=== PATIENT | female | born 1960 | race American Indian/Alaskan Native ===

== ENCOUNTER 2016-08-01 20:43 | Emergency (ER) | payer MEDICAID, OTHER ==
[2016-08-01] MEDS ORDERED: Acetaminophen 500 MG Tab PO ONE (21:53)
[2016-08-01] MEDS ORDERED: Iopamidol 612 MG/ML 100 ML Bottle IVPUSH ONE (22:36)
[2016-08-01 22:37] LABS: CHLORIDE,CL 105 mmol/L (101-111); SODIUM,NA 134 mmol/L (135-145)
[2016-08-01 22:39] VITALS: BP 145/75
--- NOTE | 2016-08-01 22:43 | EDM.PDOC ---
ED HPI GENERAL MEDICAL PROBLEM - General Chief Complaint: Fever Stated Complaint: HI FEVER [id number] Time Seen by Provider: 08/01/16 22:25 Source of Information: Reports: Patient History Limitations: Reports: No limitations - History of Present Illness INITIAL COMMENTS - FREE TEXT/NARRATIVE: This 55 yo female patient reports to the ED with a fever and left sided pain. The patient reports she has been having a cough for the past 2 days. The patient also reports she fell while in [facility] on 07/30/16. Since the fall, the patient has been having pain in her left elbow, left shoulder, left side of her chest, left hip and left knee. The patient reports she has been sitting in the EZ chair since the fall. The patient has not attempted to be seen by her primary care provider. The patient reports she is a smoker and has continued to smoke. The patient reports she has been taking ibuprofen for temporary symptom relief. Onset: other Onset Date: 07/30/16 Duration: Day(s):, Constant, Getting worse Location: Reports: chest, pelvis, upper extremity, left, lower extremity, left Quality: Reports: Ache, Sharp Severity: severe Improves with: Reports: Medication, Rest Worsens with: Reports: Movement Associated Symptoms: Reports: cough, fever/chills Treatments EVENTS ASSISTANT: Reports: NSAIDS Other Treatments EVENTS ASSISTANT: states took 600 mg ibuprofen at 6 pm Left Shoulder Pain Score (Numeric/FACES): 9 Left Hip Pain Score (Numeric/FACES): 9 Left Knee Pain Score (Numeric/FACES): 9 Left Elbow Pain Score (Numeric/FACES): 9 Left Chest Pain Score (Numeric/FACES): 9 - Related Data Allergies Allergy/AdvReac Type Severity Reaction Status Date / Time Penicillins Allergy Chills Verified 04/23/16 23:00 Home Meds: Home Meds Gabapentin [Neurontin] 600 mg PO TID 03/16/13 [History] DULoxetine [Cymbalta] 30 mg PO DAILY 03/17/13 [History] Baclofen [Baclofen] 10 mg PO TID 12/08/15 [History] Pantoprazole Sodium [Protonix] 40 mg PO DAILY 12/08/15 [History] Past Medical History HEENT History: Reports: None Respiratory History: Reports: COPD Gastrointestinal History: Reports: GERD Musculoskeletal History: Reports: Fibromyalgia, Osteoarthritis Neurological History: Reports: None Psychiatric History: Reports: None Hematologic History: Reports: None Immunologic History: Reports: None Oncologic (Cancer) History: Reports: None Dermatologic History: Reports: None - Past Surgical History GI Surgical History: Reports: Appendectomy, Cholecystectomy Social & Family History - Family History Family Medical History: Noncontributory - Tobacco Use Smoking Status *Q: Current Every Day Smoker Years of Tobacco use: 37 Packs/Tins Daily: 0.3 Used Tobacco, but Quit: No Second Hand Smoke Exposure: Yes - Caffeine Use Caffeine Use: Reports: Coffee - Alcohol Use Days Per Week of Alcohol Use: 0 - Recreational Drug Use Recreational Drug Use: No - Living Situation & Occupation Living situation: Reports: with family Occupation: unemployed ED ROS GENERAL - Review of Systems Review Of Systems: ROS reveals no pertinent complaints other than HPI. ED EXAM, GENERAL - Physical Exam Exam: See Below Exam Limited By: No limitations General Appearance: alert, WD/WN, moderate distress Eye Exam: bilateral eye: EOMI, normal inspection, PERRL Ears: normal external exam, normal canal, hearing grossly normal, normal TMs Nose: normal inspection, normal mucosa, no blood Throat/Mouth: Normal inspection, Normal lips, Normal teeth, Normal gums, Normal oropharynx, Normal voice, No airway compromise Head: atraumatic, normocephalic Neck: normal inspection, supple, non-tender, full range of motion Respiratory/Chest: no accessory muscle use, decreased breath sounds (left side due to reduced effort) Cardiovascular: normal peripheral pulses, regular rate, rhythm, no edema, no gallop, no JVD, no murmur, no rub GI/Abdominal: normal bowel sounds, soft, tender (diffuse) (Female) Exam: Deferred Rectal (Female) Exam: Deferred Extremities: no pedal edema, normal capillary refill, arm pain (left shoulder and left elbow), leg pain (left hip and left knee) Neurological: alert, oriented, CN II-XII intact, normal cognition, abnormal gait (limping) Psychiatric: depressed mood, flat affect Skin Exam: Dry, Intact, Normal color, No rash, Increased warmth Lymphatic: no adenopathy Course - Vital Signs Last Recorded V/S: Last Vital Signs Temp 38.8 C H 08/01/16 21:57 Pulse 98 08/01/16 21:47 Resp 22 H 08/01/16 21:47 BP 145/75 H 08/01/16 21:47 Pulse Ox 100 08/01/16 21:47 - Orders/Labs/Meds Orders: Active Orders 24 hr Category Date Time Status CULTURE BLOOD [BC] Stat Lab 08/01/16 22:36 Ordered CULTURE BLOOD [BC] Stat Lab 08/01/16 22:36 Ordered cefTRIAXone [Rocephin] 1 gm Med 08/01/16 23:54 Ordered Sodium Chloride 0.9% [Normal Saline] 50 ml IV ONETIME Blood Culture x2 Reflex Set [OM.PC] Stat Oth 08/01/16 22:36 Ordered Medication Orders Ceftriaxone Sodium 1 gm/ (Sodium Chloride) 50 mls @ 100 mls/hr IV ONETIME ONE Stop: 08/02/16 00:23 Labs: Laboratory Tests 08/01/16 08/01/16 08/01/16 Range/Units 22:05 22:05 22:05 WBC 16.0 H (5.0-10.0) 10^3/uL RBC 4.61 (4.2-5.4) 10^6/uL Hgb 13.9 (12.0-16.0) g/dL Hct 41.7 (37.0-47.0) % MCV 90.5 (80-100) fL MCH 30.2 (27.0-34.0) pg MCHC 33.3 (33.0-35.0) g/dL Plt Count 240 (150-450) 10^3/uL Neut % (Auto) 78.9 H (42.2-75.2) % Lymph % (Auto) 13.2 L (20.5-50.1) % Wolfe % (Auto) 7.2 (2-8) % Eos % (Auto) 0.5 L (1.0-3.0) % Baso % (Auto) 0.2 (0.0-1.0) % Sodium 134 L (135-145) mmol/L Potassium 3.7 (3.6-5.0) mmol/L Chloride 105 (101-111) mmol/L Carbon Dioxide 22.0 (21.0-31.0) mmol/L Anion Gap 10.7 BUN 8 (7-18) mg/dL Creatinine 0.7 (0.6-1.3) mg/dL Est Cr Clr Drug Dosing TNP Estimated GFR (MDRD) > 60 BUN/Creatinine Ratio 11.42 Glucose 108 H (74-105) mg/dL Lactic Acid 1.3 (0.5-2.2) mmol/L Calcium 9.1 (8.4-10.2) mg/dl Total Bilirubin 0.4 (0.2-1.0) mg/dL AST 15 (10-42) IU/L ALT 16 (10-60) IU/L Alkaline Phosphatase 99 (42-121) IU/L Total Protein 7.9 (6.7-8.2) g/dl Albumin 3.9 (3.2-5.5) g/dl Globulin 4.0 Albumin/Globulin Ratio 0.98 Meds: Medications Generic Name Dose Route Start Last Admin Trade Name Freq PRN Reason Stop Dose Admin Ceftriaxone Sodium 1 gm/ 50 mls @ 100 mls/hr 08/01/16 23:54 Sodium Chloride IV 08/02/16 00:23 ONETIME ONE Discontinued Medications Generic Name Dose Route Start Last Admin Trade Name Freq PRN Reason Stop Dose Admin Acetaminophen 1,000 mg 08/01/16 21:53 08/01/16 21:57 Tylenol Extra Strength PO 08/01/16 21:54 1,000 mg ONETIME ONE Administration Iopamidol 100 ml 08/01/16 22:36 08/01/16 22:47 Isovue-300 (61%) IVPUSH 08/01/16 22:37 100 ml ONETIME ONE Administration Departure - Departure Time of Disposition: 00:30 Disposition: Home, Self-Care 01 Condition: fair Clinical Impression: Bronchitis Contusion of elbow, left Qualifiers: Encounter type: initial encounter Qualified Code(s): S50.02XA - Contusion of left elbow, initial encounter Contusion of left knee Qualifiers: Encounter type: initial encounter Qualified Code(s): S80.02XA - Contusion of left knee, initial encounter Instructions: Contusion, [id number], Acute Bronchitis, [id number] Forms: ED Department Discharge Care Plan Goals: The patient was advised of the examination, lab, CT and x-ray results during the visit. The patient was given an oral dose of Tylenol and an IV dose of Rocephin while in the ED. The patient was discharged with a script for Azithromycin (250 mg) #6 to take 2 by mouth on day 1 and 1 by mouth on days 2- 5. If the patient has any additional symptoms or concerns, the patient should follow-up with her primary care facility or return to the emergency department. - My Orders Last 24 Hours: My Active Orders 08/01/16 22:36 CULTURE BLOOD [BC] Stat CULTURE BLOOD [BC] Stat Blood Culture x2 Reflex Set [OM.PC] Stat 08/01/16 23:54 cefTRIAXone [Rocephin] 1 gm Sodium Chloride 0.9% [Normal Saline] 50 ml IV ONETIME - Assessment/Plan Last 24 Hours: My Active Orders 08/01/16 22:36 CULTURE BLOOD [BC] Stat CULTURE BLOOD [BC] Stat Blood Culture x2 Reflex Set [OM.PC] Stat 08/01/16 23:54 cefTRIAXone [Rocephin] 1 gm Sodium Chloride 0.9% [Normal Saline] 50 ml IV ONETIME
[2016-08-01] MEDS ORDERED: cefTRIAXone 1 GM in Sodium Chloride 0.9% 50 ML IV ONE (23:54)
[2016-08-02] MEDS ORDERED: cefTRIAXone 1 GM in Sodium Chloride 0.9% 100 ML IV ONE (00:05)
== END 2016-08-02 01:11 | disposition home or self-care (01) ==
LOC: DL.ED 20:43
DX: J40 Bronchitis, not specified as acute or chronic (principal); S50.02XA Contusion of left elbow, initial encounter; S80.02XA Contusion of left knee, initial encounter; F17.210 Nicotine dependence, cigarettes, uncomplicated; K21.9 Gastro-esophageal reflux disease without esophagitis; Z90.49 Acquired absence of other specified parts of digestive tract; Z98.890 Other specified postprocedural states; Z79.899 Other long term (current) drug therapy; Z88.0 Allergy status to penicillin; W19.XXXA Unspecified fall, initial encounter
CPT/HCPCS: 36415; 71260; 73080; 73562; 74177; 80053; 83605; 85025; 87040; 96365; 99285; A9270; J0696; J7050; Q9967

== ENCOUNTER 2016-10-15 17:44 | Emergency (ER) | payer MEDICAID, OTHER ==
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
[2016-10-15 20:45] VITALS: BP 107/64
[2016-10-15] MEDS ORDERED: Acetaminophen/HYDROcodone 325-10 MG Tab PO ONE (21:06)
== END 2016-10-15 21:20 | disposition home or self-care (01) ==
LOC: DL.ED 17:44
DX: S09.90XA Unspecified injury of head, initial encounter (principal); S70.12XA Contusion of left thigh, initial encounter; S30.1XXA Contusion of abdominal wall, initial encounter; Z88.1 Allergy status to other antibiotic agents; J44.9 Chronic obstructive pulmonary disease, unspecified; K21.9 Gastro-esophageal reflux disease without esophagitis; F17.210 Nicotine dependence, cigarettes, uncomplicated; M19.90 Unspecified osteoarthritis, unspecified site; Z90.49 Acquired absence of other specified parts of digestive tract; Z79.899 Other long term (current) drug therapy; W22.8XXA Striking against or struck by other objects, initial encounter; Y04.0XXA Assault by unarmed brawl or fight, initial encounter; Y92.099 Unspecified place in other non-institutional residence as the place of occurrence of the external cause
CPT/HCPCS: 70450; 99284; A9270

== ENCOUNTER 2016-11-22 20:30 | Emergency (ER) | payer MEDICAID, OTHER ==
[2016-11-22] MEDS ORDERED: Acetaminophen/HYDROcodone 325-10 MG Tab PO ONE (20:31)
[2016-11-22 20:36] VITALS: BP 102/72
[2016-11-22 21:08] LABS: CHLORIDE,CL 110 mmol/L (101-111); SODIUM,NA 142 mmol/L (135-145)
--- NOTE | 2016-11-22 21:12 | EDM.PDOC ---
ED HPI GENERAL MEDICAL PROBLEM - General Chief Complaint: Chest Pain Stated Complaint: chest pain [id number] Time Seen by Provider: 11/22/16 21:10 Source of Information: Reports: Patient History Limitations: Reports: No Limitations - History of Present Illness INITIAL COMMENTS - FREE TEXT/NARRATIVE: sudden onset left chest pain while sitting and not doing anything then started going down left arm got worried. hurt to move arm. denies trauma. Left Chest Pain Score (Numeric/FACES): 10 - Related Data Allergies Allergy/AdvReac Type Severity Reaction Status Date / Time Penicillins Allergy Chills Verified 11/22/16 20:36 Home Meds: Home Meds Gabapentin [Neurontin] 600 mg PO TID 03/16/13 [History] Baclofen [Baclofen] 10 mg PO TID 12/08/15 [History] Pantoprazole Sodium [Protonix] 40 mg PO DAILY 12/08/15 [History] Past Medical History HEENT History: Reports: None Respiratory History: Reports: COPD Gastrointestinal History: Reports: GERD Musculoskeletal History: Reports: Fibromyalgia, Osteoarthritis Neurological History: Reports: None Psychiatric History: Reports: None Other Endocrine/Metabolic History: states that her PCP wanted to start her on thyroid medication but she refused Hematologic History: Reports: None Immunologic History: Reports: None Oncologic (Cancer) History: Reports: None Dermatologic History: Reports: None - Past Surgical History GI Surgical History: Reports: Appendectomy, Cholecystectomy Social & Family History - Family History Family Medical History: Noncontributory - Tobacco Use Smoking Status *Q: Current Every Day Smoker Years of Tobacco use: 30 Packs/Tins Daily: 0.3 Used Tobacco, but Quit: No Second Hand Smoke Exposure: Yes - Caffeine Use Caffeine Use: Reports: Coffee - Alcohol Use Days Per Week of Alcohol Use: 0 - Recreational Drug Use Recreational Drug Use: No - Living Situation & Occupation Living situation: Reports: with Family Occupation: Unemployed ED ROS GENERAL - Review of Systems Review Of Systems: ROS reveals no pertinent complaints other than HPI. ED EXAM, GENERAL - Physical Exam Exam: See Below Exam Limited By: No Limitations General Appearance: Alert, WD/WN, Anxious, Mild Distress Ears: Hearing Grossly Normal Throat/Mouth: Normal Voice, No Airway Compromise Head: Atraumatic Neck: Non-Tender, Full Range of Motion Respiratory/Chest: No Respiratory Distress, Other (left anterior chest wall palpabel tenderness) Cardiovascular: Regular Rate, Rhythm GI/Abdominal: Soft, Non-Tender Neurological: Alert, Oriented, Normal Cognition, Normal Gait, No Motor/Sensory Deficits Psychiatric: Flat Affect Skin Exam: Warm, Dry, Normal Color Lymphatic: No Adenopathy Course - Vital Signs Last Recorded V/S: Last Vital Signs Temp 36.4 C 11/22/16 20:32 Pulse 73 11/22/16 20:32 Resp 18 11/22/16 20:32 BP 102/72 11/22/16 20:32 Pulse Ox 96 11/22/16 20:32 - Orders/Labs/Meds Orders: Active Orders 24 hr Category Date Time Status EKG 12 Lead [EKG Documentation Completion] [RC] STAT Care 11/22/16 20:37 Active Labs: Laboratory Tests 11/22/16 11/22/16 11/22/16 Range/Units 20:43 20:43 20:43 WBC 6.1 (5.0-10.0) 10^3/uL RBC 4.49 (4.2-5.4) 10^6/uL Hgb 13.6 (12.0-16.0) g/dL Hct 40.4 (37.0-47.0) % MCV 90.0 (80-100) fL MCH 30.3 (27.0-34.0) pg MCHC 33.7 (33.0-35.0) g/dL Plt Count 244 (150-450) 10^3/uL Neut % (Auto) 44.7 (42.2-75.2) % Lymph % (Auto) 43.7 (20.5-50.1) % Lander % (Auto) 10.3 H (2-8) % Eos % (Auto) 1.1 (1.0-3.0) % Baso % (Auto) 0.2 (0.0-1.0) % D-Dimer, Quantitative 178 (0-400) ng/mL Sodium 142 (135-145) mmol/L Potassium 3.7 (3.6-5.0) mmol/L Chloride 110 (101-111) mmol/L Carbon Dioxide 23.0 (21.0-31.0) mmol/L Anion Gap 12.7 BUN 10 (7-18) mg/dL Creatinine 0.7 (0.6-1.3) mg/dL Est Cr Clr Drug Dosing 96.02 mL/min Estimated GFR (MDRD) > 60 BUN/Creatinine Ratio 14.28 Glucose 85 (74-105) mg/dL Calcium 9.3 (8.4-10.2) mg/dl Total Bilirubin 0.3 (0.2-1.0) mg/dL AST 13 (10-42) IU/L ALT 14 (10-60) IU/L Alkaline Phosphatase 100 (42-121) IU/L Troponin I < 0.02 (0.00-0.02) ng/ml Total Protein 7.8 (6.7-8.2) g/dl Albumin 3.8 (3.2-5.5) g/dl Globulin 4.0 Albumin/Globulin Ratio 0.95 - Re-Assessments/Exams Free Text/Narrative Re-Assessment/Exam: 11/22/16 21:13 re-exam; sleeping arousable no c/o presently 11/22/16 21:23 re-exam; results discussed with pt who states her surgeon told her to stop mscl relaxants which she was taking for her left shoulder problem. Departure - Departure Time of Disposition: 21:28 Disposition: Home, Self-Care 01 Condition: Good Clinical Impression: Left-sided chest wall pain Instructions: Nonspecific Chest Pain, [id number] Forms: ED Department Discharge Additional Instructions: 1) avoid use left arm 2) try heat to sore area 3) follow up at clinic or recheck as needed rx given; vicodon 5/325mg bid prn x 12 - My Orders Last 24 Hours: My Active Orders 11/22/16 20:37 EKG 12 Lead [EKG Documentation Completion] [RC] STAT - Assessment/Plan Last 24 Hours: My Active Orders 11/22/16 20:37 EKG 12 Lead [EKG Documentation Completion] [RC] STAT
[2016-11-22] MEDS ORDERED: Ketorolac 30 MG/ML SDV IVPUSH ONE (21:25)
[2016-11-22] MEDS ORDERED: Acetaminophen/HYDROcodone 325-10 MG Tab ONE (21:31)
--- NOTE | 2016-11-26 07:06 | EKG ---
11/22/2016- BRIAN SHER - EKG per my reading shows sinus rhythm at a rate of [address]. [facility] /[id number]
== END 2016-11-22 21:40 | disposition home or self-care (01) ==
LOC: DL.ED 20:30
DX: R07.89 Other chest pain (principal); J44.9 Chronic obstructive pulmonary disease, unspecified; K21.9 Gastro-esophageal reflux disease without esophagitis; M19.90 Unspecified osteoarthritis, unspecified site; F17.210 Nicotine dependence, cigarettes, uncomplicated; Z88.0 Allergy status to penicillin; Z79.899 Other long term (current) drug therapy; Z90.49 Acquired absence of other specified parts of digestive tract
CPT/HCPCS: 36415; 71010; 80053; 84484; 85025; 85379; 93005; 96374; 99285; A9270; J1885

== ENCOUNTER 2017-04-14 23:17 | Emergency (ER) | payer MEDICAID, OTHER ==
[2017-04-15] MEDS ORDERED: Sodium Chloride 0.9% 10 ML Syringe FLUSH PRN (00:07)
--- NOTE | 2017-04-15 00:11 | EDM.PDOC ---
ED HPI GENERAL MEDICAL PROBLEM - General Chief Complaint: Respiratory Problem Stated Complaint: CHEST AND BACK PAIN [id number] Time Seen by Provider: 04/14/17 23:58 Source of Information: Reports: Patient History Limitations: Reports: No Limitations - History of Present Illness INITIAL COMMENTS - FREE TEXT/NARRATIVE: Pt comes to the ED with complaints of a headache that started at 2100 hrs tonight. First time headache like this. NO aura. NO recent trauma falls or history of migraine. Headache started rather suddenly and the worst headache of her life. Aching generalized with chest pain substernal with radiation to the bilateral axilla. CP Started at 2200 hrs tonight. Has had before and was told it was gas. No diaphoresis vomiting. Nausea is present. Sob intermittently and is currently a smoking. Denies any anxiety. No pain or swelling to her lower extremities. No change in her vision. no numbness or tingling. No change in the functionality of her upper or lower extremities. Does complain of fever and chills. NO phonophobia or photophobia. Pain also radiates down her neck as well. NO abd pain. Headache Pain Score (Numeric/FACES): 10 - Related Data Allergies Allergy/AdvReac Type Severity Reaction Status Date / Time Penicillins Allergy Chills Verified 04/14/17 23:28 Home Meds: Home Meds Gabapentin [Neurontin] 600 mg PO TID 03/16/13 [History] Baclofen [Baclofen] 10 mg PO TID 12/08/15 [History] Pantoprazole Sodium [Protonix] 40 mg PO DAILY 12/08/15 [History] Past Medical History HEENT History: Reports: None Respiratory History: Reports: COPD Gastrointestinal History: Reports: GERD Musculoskeletal History: Reports: Fibromyalgia, Osteoarthritis Neurological History: Reports: None Psychiatric History: Reports: None Other Endocrine/Metabolic History: states that her PCP wanted to start her on thyroid medication but she refused Hematologic History: Reports: None Immunologic History: Reports: None Oncologic (Cancer) History: Reports: None Dermatologic History: Reports: None - Past Surgical History GI Surgical History: Reports: Appendectomy, Cholecystectomy Social & Family History - Family History Family Medical History: Noncontributory - Tobacco Use Smoking Status *Q: Current Every Day Smoker Years of Tobacco use: 40 Packs/Tins Daily: 0.5 Used Tobacco, but Quit: No Second Hand Smoke Exposure: Yes - Caffeine Use Caffeine Use: Reports: Coffee - Alcohol Use Days Per Week of Alcohol Use: 0 - Recreational Drug Use Recreational Drug Use: No - Living Situation & Occupation Living situation: Reports: with Family Occupation: Unemployed ED ROS GENERAL - Review of Systems Review Of Systems: ROS reveals no pertinent complaints other than HPI. ED EXAM, GENERAL - Physical Exam Exam: See Below Exam Limited By: No Limitations General Appearance: Alert, WD/WN, No Apparent Distress Eye Exam: Bilateral Eye: EOMI, Normal Inspection, PERRL Ears: Normal External Exam, Normal Canal, Normal TMs Nose: Normal Inspection, Normal Mucosa, No Blood Throat/Mouth: Normal Inspection, Normal Lips, Normal Teeth, Normal Oropharynx, Normal Voice Head: Atraumatic, Normocephalic Neck: Normal Inspection, Supple, Non-Tender, Full Range of Motion Respiratory/Chest: No Respiratory Distress, Lungs Clear, Normal Breath Sounds, No Accessory Muscle Use, Chest Non-Tender Cardiovascular: Normal Peripheral Pulses, Regular Rate, Rhythm, No Edema, No JVD Peripheral Pulses: 2+: Radial (L), Radial (R), Posterior Tibial (L), Posterior Tibial (R), Dorsalis Pedis (L), Dorsalis Pedis (R) GI/Abdominal: Normal Bowel Sounds, Soft, No Distention (Female) Exam: Deferred Rectal (Female) Exam: Deferred Back Exam: Normal Inspection, Full Range of Motion. No: CVA Tenderness (L), CVA Tenderness (R) Extremities: Normal Inspection, Normal Range of Motion, Non-Tender, Normal Capillary Refill Neurological: Alert, Oriented, CN II-XII Intact, Normal Cognition, Normal Reflexes, No Motor/Sensory Deficits Psychiatric: Normal Affect, Normal Mood Skin Exam: Warm, Dry, Intact, Normal Color, No Rash Lymphatic: No Adenopathy EKG INTERPRETATION EKG Date: 04/15/17 Time: 00:28 Rhythm: Other (first-degree AV block) Rate (Beats/Min): 81 [place]: Normal P-Wave: Present (first-degree AV block) QRS: Normal ST-T: Normal QT: Normal Comparison: NA - No Prior EKG Course - Vital Signs Last Recorded V/S: Last Vital Signs Temp 37.3 C 04/15/17 02:08 Pulse 94 04/15/17 02:08 Resp 14 04/15/17 02:08 BP 99/61 04/15/17 02:08 Pulse Ox 94 L 04/15/17 02:08 - Orders/Labs/Meds Orders: Active Orders 24 hr Category Date Time Status EKG 12 Lead [EKG Documentation Completion] [RC] URGENT Care 04/15/17 00:08 Active Peripheral IV Care [RC] . DIRECTED Care 04/15/17 00:08 Active Chest 2V [CR] Urgent Exams 04/15/17 00:08 Taken Head wo Cont [CT] Stat Exams 04/15/17 00:07 Taken Peripheral IV Insertion Adult [OM.PC] Stat Oth 04/15/17 00:07 Ordered Labs: Laboratory Tests 04/15/17 04/15/17 04/15/17 Range/Units 00:26 00:26 00:26 WBC 8.8 (5.0-10.0) 10^3/uL RBC 4.54 (4.2-5.4) 10^6/uL Hgb 13.6 (12.0-16.0) g/dL Hct 40.7 (37.0-47.0) % MCV 89.6 (80-100) fL MCH 30.0 (27.0-34.0) pg MCHC 33.4 (33.0-35.0) g/dL Plt Count 260 (150-450) 10^3/uL Neut % (Auto) 76.1 H (42.2-75.2) % Lymph % (Auto) 15.3 L (20.5-50.1) % [place] % (Auto) 6.8 (2-8) % Eos % (Auto) 1.7 (1.0-3.0) % Baso % (Auto) 0.1 (0.0-1.0) % Sodium 139 (135-145) mmol/L Potassium 3.6 (3.6-5.0) mmol/L Chloride 108 (101-111) mmol/L Carbon Dioxide 22.0 (21.0-31.0) mmol/L Anion Gap 12.6 BUN 12 (7-18) mg/dL Creatinine 0.8 (0.6-1.3) mg/dL Est Cr Clr Drug Dosing 71.50 mL/min Estimated GFR (MDRD) > 60 BUN/Creatinine Ratio 15.00 Glucose 102 (74-105) mg/dL Calcium 9.0 (8.4-10.2) mg/dl Total Bilirubin 0.5 (0.2-1.0) mg/dL AST 18 (10-42) IU/L ALT 17 (10-60) IU/L Alkaline Phosphatase 102 (42-121) IU/L Troponin I < 0.02 (0.00-0.02) ng/ml C-Reactive Protein < 0.5 (0.0-1.3) mg/dL Total Protein 7.6 (6.7-8.2) g/dl Albumin 3.9 (3.2-5.5) g/dl Globulin 3.7 Albumin/Globulin Ratio 1.05 Meds: Medications Discontinued Medications Generic Name Dose Route Start Last Admin Trade Name Freq PRN Reason Stop Dose Admin Al Hydroxide/Mg Hydroxide 30 ml 04/15/17 00:23 04/15/17 01:12 Gi Cocktail PO 04/15/17 00:24 30 ml ONETIME ONE Administration Diphenhydramine HCl 25 mg 04/15/17 00:21 04/15/17 01:12 Benadryl IVPUSH 04/15/17 00:22 25 mg ONETIME ONE Administration Sodium Chloride 1,000 mls @ 999 mls/hr 04/15/17 00:21 04/15/17 01:11 Normal Saline IV 04/15/17 01:21 999 mls/hr .BOLUS ONE Administration Ketorolac Tromethamine 30 mg 04/15/17 01:57 04/15/17 02:06 Toradol IVPUSH 04/15/17 01:58 30 mg ONETIME ONE Administration Metoclopramide HCl 10 mg 04/15/17 00:21 04/15/17 01:12 Reglan IVPUSH 04/15/17 00:22 10 mg ONETIME ONE Administration Sodium Chloride 10 ml 04/15/17 00:07 Saline Flush FLUSH ASDIRECTED PRN Keep Vein Open - Radiology Interpretation Free Text/Narrative:: CT of the head per radiology no acute intracranial process. Chest x-ray per radiology no active disease of the chest. No significant change. - Re-Assessments/Exams Free Text/Narrative Re-Assessment/Exam: 04/15/17 00:57 patient was initially given Benadryl and Reglan and normal saline for her headache as well as her nausea. I did hold the ketorolac due to concerns of her severe headache until her CAT scan results have been identified. She also received a GI cocktail. 04/15/17 02:04 PT resting comfortably on the cot. Denies chest pain denies headache and feels much better. GI Cocktail resolved her chest pain. Results unremarkable labs and ct head. Departure - Departure Time of Disposition: 02:00 Disposition: Home, Self-Care 01 Clinical Impression: Heartburn Migraine Qualifiers: Migraine type: unspecified Status migrainosus presence: without status migrainosus Intractability: not intractable Qualified Code(s): G43.909 - Migraine, unspecified, not intractable, without status migrainosus - Discharge Information Instructions: Migraine Headache, [id number], Gastroesophageal Reflux Disease , Adult Forms: ED Department Discharge Additional Instructions: Tums Rolaids Maalox or Mylanta [id number] for acute symptoms of heartburn. Continue your omeprazole daily Tylenol or ibuprofen as needed for headache. Push fluids over the next couple of days. Try to rest as much as possible. Return to emergency department if new or worsening symptoms. Follow-up primary care provider in the next 4-6 days not improving sooner first. - My Orders Last 24 Hours: My Active Orders 04/15/17 00:07 Head wo Cont [CT] Stat Peripheral IV Insertion Adult [OM.PC] Stat 04/15/17 00:08 EKG 12 Lead [EKG Documentation Completion] [RC] URGENT Peripheral IV Care [RC] . DIRECTED Chest 2V [CR] Urgent - Assessment/Plan Last 24 Hours: My Active Orders 04/15/17 00:07 Head wo Cont [CT] Stat Peripheral IV Insertion Adult [OM.PC] Stat 04/15/17 00:08 EKG 12 Lead [EKG Documentation Completion] [RC] URGENT Peripheral IV Care [RC] . DIRECTED Chest 2V [CR] Urgent
[2017-04-15] MEDS ORDERED: Metoclopramide 10 MG/2 ML SDV IVPUSH ONE (00:21)
[2017-04-15] MEDS ORDERED: diphenhydrAMINE 50 MG/ML SDV IVPUSH ONE (00:21)
[2017-04-15] MEDS ORDERED: Sodium Chloride 0.9% 1,000 ML IV ONE (00:21)
[2017-04-15] MEDS ORDERED: GI Cocktail Oral Solution 30 ML PO ONE (00:23)
[2017-04-15 01:06] LABS: CHLORIDE,CL 108 mmol/L (101-111); SODIUM,NA 139 mmol/L (135-145)
[2017-04-15] MEDS ORDERED: Ketorolac 30 MG/ML SDV IVPUSH ONE (01:57)
[2017-04-15 02:10] VITALS: BP 99/61
--- NOTE | 2017-04-21 09:32 | EKG ---
04/15/2017- BRIAN SHER - EKG per my reading shows sinus rhythm at a rate of 81. [facility] /[id number]
== END 2017-04-15 02:19 | disposition home or self-care (01) ==
LOC: DL.ED 23:17
DX: G43.909 Migraine, unspecified, not intractable, without status migrainosus (principal); R12 Heartburn; J44.9 Chronic obstructive pulmonary disease, unspecified; K21.9 Gastro-esophageal reflux disease without esophagitis; F17.210 Nicotine dependence, cigarettes, uncomplicated; Z88.0 Allergy status to penicillin; Z79.899 Other long term (current) drug therapy
CPT/HCPCS: 36415; 70450; 71046; 80053; 84484; 85025; 86140; 87804; 93005; 96361; 96374; 96375; 99284; A9270; J1200; J1885; J2765; J7030

== ENCOUNTER 2017-11-06 20:07 | Emergency (ER) | payer MEDICAID, OTHER ==
[2017-11-06 20:42] VITALS: BP 109/71
[2017-11-06 21:35] LABS: ANION GAP 10.5; CHLORIDE,CL 110 mmol/L (101-111); SODIUM,NA 138 mmol/L (135-145)
[2017-11-06] MEDS ORDERED: Iopamidol 612 MG/ML 100 ML Bottle IVPUSH ONE (22:11)
[2017-11-07] MEDS ORDERED: Sodium Chloride 0.9% 1,000 ML IV ONE (00:27)
[2017-11-07] MEDS ORDERED: Ondansetron 4 MG/2 ML SDV IV ONE (00:37)
[2017-11-07] MEDS ORDERED: Morphine 2 MG/ML Syringe IVPUSH ONE (00:37)
--- NOTE | 2017-11-07 00:46 | EDM.PDOC ---
ED HPI GENERAL MEDICAL PROBLEM - General Chief Complaint: Abdominal Pain Stated Complaint: STOMACH PAIN Time Seen by Provider: 11/06/17 20:55 Source of Information: Reports: Patient, RN Notes Reviewed History Limitations: Reports: No Limitations - History of Present Illness INITIAL COMMENTS - FREE TEXT/NARRATIVE: ED with c/o intermittent nausea with emesis x 4 today, 4 watery stools. no blood in emesis or diarrhea, Notes chronic diarrhea, no recent GI workup. Lower abdominal pain crampy, present about one week . Intermittent fever, No urinary c /o. Seen on 11/01 with vaginal itching and discharge, diagnosed with BV and Rx for Metrogel. Abdomen Pain Score (Numeric/FACES): 8 - Related Data Allergies Allergy/AdvReac Type Severity Reaction Status Date / Time Penicillins Allergy Chills Verified 11/06/17 20:42 Home Meds: Home Meds Gabapentin [Neurontin] 600 mg PO TID 03/16/13 [History] Baclofen 10 mg PO TID 12/08/15 [History] Pantoprazole Sodium [Protonix] 40 mg PO DAILY 12/08/15 [History] Past Medical History HEENT History: Reports: None Respiratory History: Reports: COPD Gastrointestinal History: Reports: GERD Musculoskeletal History: Reports: Fibromyalgia, Osteoarthritis Neurological History: Reports: None Psychiatric History: Reports: None Other Endocrine/Metabolic History: states that her PCP wanted to start her on thyroid medication but she refused Hematologic History: Reports: None Immunologic History: Reports: None Oncologic (Cancer) History: Reports: None Dermatologic History: Reports: None - Past Surgical History GI Surgical History: Reports: Appendectomy, Cholecystectomy Social & Family History - Family History Family Medical History: Noncontributory - Tobacco Use Smoking Status *Q: Current Every Day Smoker Years of Tobacco use: 40 Packs/Tins Daily: 0.4 Second Hand Smoke Exposure: Yes - Caffeine Use Caffeine Use: Reports: Coffee, Soda - Recreational Drug Use Recreational Drug Use: No - Living Situation & Occupation Living situation: Reports: with Family Occupation: Unemployed ED ROS GENERAL - Review of Systems Review Of Systems: ROS reveals no pertinent complaints other than HPI. ED EXAM, GI/ABD - Physical Exam Exam: See Below Exam Limited By: No Limitations General Appearance: Alert, Mild Distress Eyes: Bilateral: EOMI Ears: Normal External Exam Nose: Normal Inspection Throat/Mouth: Normal Inspection Head: Atraumatic, Normocephalic Neck: Normal Inspection, Full Range of Motion Respiratory/Chest: No Respiratory Distress, Lungs Clear, Decreased Breath Sounds (bases bilaterally) Cardiovascular: Normal Peripheral Pulses, Regular Rate, Rhythm GI/Abdominal Exam: Soft, Tender (lower abdomen). No: Distended, Guarding, Rebound Back Exam: Normal Inspection Extremities: Normal Inspection Neurological: Alert, Oriented Psychiatric: Flat Affect Skin Exam: Warm, Dry, Intact, Normal Color Course - Vital Signs Last Recorded V/S: Last Vital Signs Temp 97.9 F 11/06/17 20:39 Pulse 85 11/06/17 20:39 Resp 17 11/06/17 20:39 BP 109/71 11/06/17 20:39 Pulse Ox 98 11/06/17 20:39 - Orders/Labs/Meds Labs: Laboratory Tests 11/06/17 11/06/17 11/06/17 Range/Units 21:10 21:10 21:10 WBC 7.4 (5.0-10.0) 10^3/uL RBC 4.49 (4.2-5.4) 10^6/uL Hgb 13.7 (12.0-16.0) g/dL Hct 40.5 (37.0-47.0) % MCV 90.2 (80-100) fL MCH 30.5 (27.0-34.0) pg MCHC 33.8 (33.0-35.0) g/dL Plt Count 246 (150-450) 10^3/uL Neut % (Auto) 52.7 (42.2-75.2) % Lymph % (Auto) 38.3 (20.5-50.1) % [place] % (Auto) 7.3 (2-8) % Eos % (Auto) 1.6 (1.0-3.0) % Baso % (Auto) 0.1 (0.0-1.0) % Sodium (135-145) mmol/L Potassium (3.6-5.0) mmol/L Chloride (101-111) mmol/L Carbon Dioxide (21.0-31.0) mmol/L Anion Gap BUN (7-18) mg/dL Creatinine (0.6-1.3) mg/dL Est Cr Clr Drug Dosing mL/min Estimated GFR (MDRD) BUN/Creatinine Ratio Glucose (74-105) mg/dL Lactic Acid (0.5-2.2) mmol/L Calcium (8.4-10.2) mg/dl Total Bilirubin (0.2-1.0) mg/dL AST (10-42) IU/L ALT (10-60) IU/L Alkaline Phosphatase (42-121) IU/L Total Protein (6.7-8.2) g/dl Albumin (3.2-5.5) g/dl Globulin Albumin/Globulin Ratio Urine Color Yellow (YELLOW) Urine Appearance Slightly cloudy (CLEAR) Urine pH 5.5 (5.0-9.0) Ur Specific [place] <= 1.005 (1.005-1.030) Urine Protein Negative (NEGATIVE) Urine Glucose (UA) Negative (NEGATIVE) Urine Ketones Negative (NEGATIVE) Urine Occult Blood Large H (NEGATIVE) Urine Nitrite Negative (NEGATIVE) Urine Bilirubin Negative (NEGATIVE) Urine Urobilinogen 0.2 (0.2-1.0) mg/dL Ur Leukocyte Esterase Trace H (NEGATIVE) Urine RBC 0-5 /HPF Urine WBC 0-5 (0-5/HPF) /HPF Ur Epithelial Cells Few /HPF Urine Bacteria Few (0-FEW/HPF) /HPF Urine Opiates Screen Negative (NEGATIVE) Ur Oxycodone Screen Negative (NEGATIVE) Urine Methadone Screen Negative (NEGATIVE) Ur Barbiturates Screen Negative (NEGATIVE) U Tricyclic Antidepress Negative (NEGATIVE) Ur Phencyclidine Scrn Negative (NEGATIVE) Ur Amphetamine Screen Negative (NEGATIVE) U Methamphetamines Scrn Negative (NEGATIVE) Urine MDMA Screen Negative (NEGATIVE) U Benzodiazepines Scrn Negative (NEGATIVE) Urine Cocaine Screen Negative (NEGATIVE) U Marijuana (THC) Screen Negative (NEGATIVE) 11/06/17 11/06/17 Range/Units 21:10 21:10 WBC (5.0-10.0) 10^3/uL RBC (4.2-5.4) 10^6/uL Hgb (12.0-16.0) g/dL Hct (37.0-47.0) % MCV (80-100) fL MCH (27.0-34.0) pg MCHC (33.0-35.0) g/dL Plt Count (150-450) 10^3/uL Neut % (Auto) (42.2-75.2) % Lymph % (Auto) (20.5-50.1) % [place] % (Auto) (2-8) % Eos % (Auto) (1.0-3.0) % Baso % (Auto) (0.0-1.0) % Sodium 138 (135-145) mmol/L Potassium 3.5 L (3.6-5.0) mmol/L Chloride 110 (101-111) mmol/L Carbon Dioxide 21.0 (21.0-31.0) mmol/L Anion Gap 10.5 BUN 10 (7-18) mg/dL Creatinine 0.8 (0.6-1.3) mg/dL Est Cr Clr Drug Dosing 68.61 mL/min Estimated GFR (MDRD) > 60 BUN/Creatinine Ratio 12.50 Glucose 95 (74-105) mg/dL Lactic Acid 0.7 (0.5-2.2) mmol/L Calcium 9.3 (8.4-10.2) mg/dl Total Bilirubin 0.4 (0.2-1.0) mg/dL AST 16 (10-42) IU/L ALT 15 (10-60) IU/L Alkaline Phosphatase 94 (42-121) IU/L Total Protein 7.9 (6.7-8.2) g/dl Albumin 3.9 (3.2-5.5) g/dl Globulin 4.0 Albumin/Globulin Ratio 0.98 Urine Color (YELLOW) Urine Appearance (CLEAR) Urine pH (5.0-9.0) Ur Specific [place] (1.005-1.030) Urine Protein (NEGATIVE) Urine Glucose (UA) (NEGATIVE) Urine Ketones (NEGATIVE) Urine Occult Blood (NEGATIVE) Urine Nitrite (NEGATIVE) Urine Bilirubin (NEGATIVE) Urine Urobilinogen (0.2-1.0) mg/dL Ur Leukocyte Esterase (NEGATIVE) Urine RBC /HPF Urine WBC (0-5/HPF) /HPF Ur Epithelial Cells /HPF Urine Bacteria (0-FEW/HPF) /HPF Urine Opiates Screen (NEGATIVE) Ur Oxycodone Screen (NEGATIVE) Urine Methadone Screen (NEGATIVE) Ur Barbiturates Screen (NEGATIVE) U Tricyclic Antidepress (NEGATIVE) Ur Phencyclidine Scrn (NEGATIVE) Ur Amphetamine Screen (NEGATIVE) U Methamphetamines Scrn (NEGATIVE) Urine MDMA Screen (NEGATIVE) U Benzodiazepines Scrn (NEGATIVE) Urine Cocaine Screen (NEGATIVE) U Marijuana (THC) Screen (NEGATIVE) Meds: Medications Discontinued Medications Generic Name Dose Route Start Last Admin Trade Name [place] PRN Reason Stop Dose Admin Sodium Chloride 1,000 mls @ 150 mls/hr 11/07/17 00:27 11/07/17 00:31 Normal Saline IV 11/07/17 07:06 150 mls/hr .BOLUS ONE Administration Iopamidol 100 ml 11/06/17 22:11 11/06/17 22:25 Isovue-300 (61%) IVPUSH 11/06/17 22:12 100 ml ONETIME ONE Administration Morphine Sulfate 2 mg 11/07/17 00:37 11/07/17 00:43 Morphine IVPUSH 11/07/17 00:38 2 mg ONETIME ONE Administration Ondansetron HCl 4 mg 11/07/17 00:37 11/07/17 00:41 Zofran IV 11/07/17 00:38 4 mg ONETIME ONE Administration - Re-Assessments/Exams Free Text/Narrative Re-Assessment/Exam: 11/07/17 00:[address] Stewart, [facility] hospitalist , recommendation for higher care. TC Dr. Marvin Orozco accepting of patient. Tx via [facility] stable condition. Departure - Departure Time of Disposition: 00:50 Disposition: DC/Tfer to Acute Hospital 02 Clinical Impression: Ileus Abdominal pain Qualifiers: Abdominal location: generalized Qualified Code(s): R10.84 - Generalized abdominal pain Hematuria Qualifiers: Hematuria type: asymptomatic microscopic Qualified Code(s): R31.21 - Asymptomatic microscopic hematuria - Discharge Information Referrals: PCP,None [Ordering Only Provider] - Forms: ED Department Discharge
== END 2017-11-07 00:51 ==
LOC: DL.ED 20:07
DX: K56.7 Ileus, unspecified (principal); R31.21 Asymptomatic microscopic hematuria; J44.9 Chronic obstructive pulmonary disease, unspecified; K21.9 Gastro-esophageal reflux disease without esophagitis; F17.210 Nicotine dependence, cigarettes, uncomplicated; Z88.0 Allergy status to penicillin; Z79.899 Other long term (current) drug therapy
CPT/HCPCS: 36415; 74019; 74178; 80053; 80305; 81001; 83605; 85025; 96374; 96375; 99285; J2270; J2405; J7030; Q9967

== ENCOUNTER 2018-07-07 05:15 | Day surgery (SDC) | payer MEDICAID, OTHER ==
[2018-07-07] MEDS ORDERED: Midazolam 1 MG/ML 2 ML SDV IV ONE ×3 (05:16→06:26)
[2018-07-07] MEDS ORDERED: fentaNYL 100 MCG/2 ML SDV IV ONE ×3 (05:16→06:25)
[2018-07-07] MEDS ORDERED: fentaNYL 100 MCG/2 ML SDV ONE (06:00)
[2018-07-07] MEDS ORDERED: Midazolam 1 MG/ML 2 ML SDV ONE (06:00)
[2018-07-07] MEDS ORDERED: Dextrose 5%-0.45% NaCl 1,000 ML IV SCH (06:30)
--- NOTE | 2018-07-07 07:16 | OR ---
DATE: 07/07/2018 PROCEDURE: Esophagogastroduodenoscopy and multiple pinch biopsies. INSTRUMENT USED: [id number]-[id number] Olympus video panendoscope. PREMEDICATIONS: No oral topical anesthesia used. Fentanyl 100 mcg intravenous and Versed 2 mg intravenous. The procedure was done under pulse oximetry, BP recording, and case monitor. INDICATIONS: The patient with chronic abdominal pain and diarrhea unexplained and not responsive to medical measures. DESCRIPTION OF PROCEDURE: Esophagogastroduodenoscopy is performed for detection of any active erosive lesions, malignancy also under consideration, H. pylori status to be determined, small bowel biopsies to be obtained for celiac disease if indicated, endoscopic hemostasis therapy if needed. The scope was passed with ease. Adequate visualization of the esophagus was made from proximal to distal areas. No upper esophageal lesions identified. No distal esophageal stricture. No uphill or downhill esophageal varices. No [place] tear. No evidence of erosive esophagitis by Graves criteria. No esophageal polyp or tumor mass identified. Z-line was seen at around 39 cm distal to the oral verge, configuration consistent with grade 1 by ZAP classification. No proximal gastric varices noted. Gastric fundus examination by retroflexion showed no polypoid lesions. No gastric ulcer, malignant mass, or vascular ectasia identified. Duodenal bulb showed no ulcer. Visualized second part of the duodenum was unremarkable. Multiple pinch biopsies, 4 in number, were taken from different areas of the second part of the duodenum; and tissues were also obtained from the duodenal bulb at 9 o'clock and 12 o'clock positions and sent for any histopathologic evidence of celiac disease. Multiple pinch biopsies were taken from the gastric antrum and proximal body and sent for PyloriTek test for H. pylori and histopathology. No bleeding was noted from any of the visualized areas at the completion of the examination. Photographs were taken of the duodenal bulb, gastric fundus and distal esophagus. IMPRESSION: Normal study. The patient tolerated the procedure well. [facility] /[id number]
[2018-07-07 08:43] VITALS: BP 108/68
== END 2018-07-07 08:40 | disposition home or self-care (01) ==
LOC: DL.ENDO 05:15
PROVIDERS: ATTEND Internal Medicine Gastroenterology
DX: K29.50 Unspecified chronic gastritis without bleeding (principal); K52.9 Noninfective gastroenteritis and colitis, unspecified; K21.9 Gastro-esophageal reflux disease without esophagitis; F17.210 Nicotine dependence, cigarettes, uncomplicated; M19.90 Unspecified osteoarthritis, unspecified site; E66.09 Other obesity due to excess calories; Z68.31 Body mass index [BMI] 31.0-31.9, adult; Z88.0 Allergy status to penicillin
CPT/HCPCS: 43239; 87077; J2250; J3010; J7042

== ENCOUNTER 2021-04-18 18:40 | Emergency (ER) | payer OTHER, MEDICAID ==
[2021-04-18 17:14] LABS: SODIUM,NA 142 mmol/L (136-145)
[2021-04-18 17:23] LABS: ANION GAP 20.3 mEq/L (7-13); CHLORIDE,CL 103 mmol/L (98-107)
[~2021-04-18 18:40] MED LIST: Acetaminophen 500 MG Tab PO ONE; fentaNYL 100 MCG/2 ML SDV IVPUSH ONE
[2021-04-18] MEDS ORDERED: Ondansetron 4 MG Tab.DIS PO ONE (18:41)
[2021-04-18] MEDS ORDERED: Acetaminophen/HYDROcodone 325-5 MG Tab PO ONE (18:41)
[2021-04-18] MEDS ORDERED: Acetaminophen/HYDROcodone 325-5 MG Tab ONE (20:38)
[2021-04-18] MEDS ORDERED: Ondansetron 4 MG/2 ML SDV IVPUSH ONE (20:44)
[2021-04-18] MEDS ORDERED: Ondansetron 4 MG Tab.DIS ONE (20:48)
== END 2021-04-18 21:05 | disposition home or self-care (01) ==
LOC: DL.ED 18:40
DX: S22.43XA Multiple fractures of ribs, bilateral, initial encounter for closed fracture (principal); S01.01XA Laceration without foreign body of scalp, initial encounter; S80.01XA Contusion of right knee, initial encounter; S80.02XA Contusion of left knee, initial encounter; K21.9 Gastro-esophageal reflux disease without esophagitis; E03.9 Hypothyroidism, unspecified; E66.9 Obesity, unspecified; Z88.0 Allergy status to penicillin; Z79.899 Other long term (current) drug therapy; V43.52XA Car driver injured in collision with other type car in traffic accident, initial encounter
CPT/HCPCS: 12001; 36415; 70450; 71250; 72125; 80053; 85025; 96374; 99284; A9270; J2405; J3010

== ENCOUNTER 2021-07-24 21:09 | Inpatient (IN) | payer MEDICAID ==
[2021-07-24] MEDS ORDERED: Acetaminophen 325 MG Tab PO ONE (21:24)
[2021-07-24 22:03] LABS: ANION GAP 14.7 mEq/L (7-13); CHLORIDE,CL 103 mmol/L (98-107); SODIUM,NA 137 mmol/L (136-145)
[2021-07-24] MEDS ORDERED: Iopamidol 612 MG/ML 100 ML Bottle IVPUSH ONE (22:24)
[2021-07-24 22:25] LABS: CORONAVIRUS COVID-19 NAA NEGATIVE (NEGATIVE)
[2021-07-24] MEDS ORDERED: Ondansetron 4 MG/2 ML SDV IVPUSH ONE (23:42)
[2021-07-24] MEDS ORDERED: Sodium Chloride 0.9% 1,000 ML IV ONE (23:43)
[2021-07-24 23:57] LABS: AMPHETAMINES,URINE NEGATIVE (NEGATIVE); BARBITURATES,URINE NEGATIVE (NEGATIVE); BENZODIAZEPINE,URINE NEGATIVE (NEGATIVE); MDMA (ECSTASY), URINE NEGATIVE (NEGATIVE); METHADONE,URINE NEGATIVE (NEGATIVE); METHAMPHETAMINES,URINE NEGATIVE (NEGATIVE); OPIATES,URINE NEGATIVE (NEGATIVE); OXYCODONE,URINE NEGATIVE (NEGATIVE); PHENCYCLIDINE,URINE NEGATIVE (NEGATIVE); TCA,URINE NEGATIVE (NEGATIVE)
[2021-07-25] MEDS ORDERED: HYDROmorphone 0.5 MG/0.5 ML Syringe IVPUSH PRN (01:18)
[2021-07-25] MEDS ORDERED: Polyethylene Glycol 3350 Powder 17 GM Packet PO PRN (01:18)
[2021-07-25] MEDS ORDERED: Zolpidem 5 MG Tab PO PRN (01:18)
[2021-07-25] MEDS ORDERED: Albuterol/Ipratropium 3.0-0.5 MG/3 ML Neb Soln NEB PRN (01:18)
[2021-07-25] MEDS ORDERED: Docusate Sodium 100 MG Cap PO PRN (01:18)
[2021-07-25] MEDS ORDERED: Magnesium Hydroxide 400 MG/5 ML Susp 30 ML Cup PO PRN (01:18)
[2021-07-25] MEDS ORDERED: Acetaminophen 325 MG Tab PO PRN (01:18)
[2021-07-25] MEDS ORDERED: cefTRIAXone 2 GM in Sodium Chloride 0.9% 100 ML IV ONE (01:26)
[2021-07-25] MEDS ORDERED: Metoprolol Tartrate 5 MG/5 ML SDV IVPUSH PRN (01:28)
[2021-07-25] MEDS ORDERED: hydrALAZINE 20 MG/ML SDV IVPUSH PRN (01:29)
[2021-07-25] MEDS ORDERED: Ketorolac 30 MG/ML SDV IVPUSH PRN (01:31)
[2021-07-25] MEDS: Acetaminophen/oxyCODONE 325-5 MG Tab PO PRN ×3 (03:03→15:10)
[2021-07-25] MEDS ORDERED: NABUMETONE 500 MG PO SCH (09:00)
[2021-07-25] MEDS ORDERED: Omeprazole 20 MG Cap.CR PO SCH (09:00)
[2021-07-25] MEDS ORDERED: Nicotine 21 MG/24 Hr Patch TRDERM ONE (09:04)
[2021-07-25] MEDS ORDERED: Sodium Chloride 0.9% 1,000 ML IV SCH ×2 (09:15→23:30)
[2021-07-25] MEDS: Enoxaparin 40 MG/0.4 ML Syringe SUBCUT SCH (10:45)
[2021-07-25] MEDS: Saccharomyces Boulardii (Probiotic) 250 MG Cap PO SCH ×2 (10:46→20:29)
[2021-07-25] MEDS: Baclofen 10 MG Tab PO SCH ×3 (10:46→20:29)
[2021-07-25] MEDS: Gabapentin 300 MG Cap PO SCH ×3 (10:47→20:29)
[2021-07-25] MEDS: Pantoprazole 40 MG Vial IVPUSH SCH ×2 (10:49→20:29)
[2021-07-25] MEDS: Levothyroxine 100 MCG Tab PO SCH (10:54)
[2021-07-25] MEDS: Nicotine 21 MG/24 Hr Patch TRDERM SCH (10:58)
[2021-07-25] MEDS: Ondansetron 4 MG/2 ML SDV IVPUSH PRN (18:11)
[2021-07-25] MEDS ORDERED: SODIUM CHLORIDE 0.9% IV SCH (21:00)
[2021-07-25] MEDS ORDERED: VANCOMYCIN IV SCH (21:00)
[2021-07-25] MEDS: cefTRIAXone 1 GM in Sodium Chloride 0.9% 50 ML IV SCH (23:47)
[2021-07-26] MEDS: Levothyroxine 100 MCG Tab PO SCH (05:14)
[2021-07-26] MEDS: Enoxaparin 40 MG/0.4 ML Syringe SUBCUT SCH (08:55)
[2021-07-26] MEDS: Saccharomyces Boulardii (Probiotic) 250 MG Cap PO SCH ×2 (08:56→20:36)
[2021-07-26] MEDS: Baclofen 10 MG Tab PO SCH ×3 (08:56→20:36)
[2021-07-26] MEDS: Gabapentin 300 MG Cap PO SCH ×3 (08:56→20:37)
[2021-07-26] MEDS: Nicotine 21 MG/24 Hr Patch TRDERM SCH (08:57)
[2021-07-26] MEDS: Pantoprazole 40 MG Vial IVPUSH SCH ×2 (08:58→20:37)
[2021-07-26] MEDS ORDERED: guaiFENesin/Dextromethorphan 100-10 MG/5 ML Soln 5 ML Cup PO PRN (09:48)
[2021-07-26 10:16] LABS: ANION GAP 12.8 mEq/L (7-13)
[2021-07-26] MEDS: Ondansetron 4 MG/2 ML SDV IVPUSH PRN (10:43)
[2021-07-26] MEDS: cefTRIAXone 1 GM in Sodium Chloride 0.9% 50 ML IV SCH (22:43)
[2021-07-27] MEDS: Levothyroxine 100 MCG Tab PO SCH (05:39)
[2021-07-27 06:37] LABS: CHLORIDE,CL 106 mmol/L (98-107); SODIUM,NA 140 mmol/L (136-145)
[2021-07-27] MEDS: Baclofen 10 MG Tab PO SCH ×3 (09:04→20:41)
[2021-07-27] MEDS: Saccharomyces Boulardii (Probiotic) 250 MG Cap PO SCH ×2 (09:04→20:41)
[2021-07-27] MEDS: Enoxaparin 40 MG/0.4 ML Syringe SUBCUT SCH (09:05)
[2021-07-27] MEDS: Gabapentin 300 MG Cap PO SCH ×3 (09:05→20:41)
[2021-07-27] MEDS: Pantoprazole 40 MG Vial IVPUSH SCH ×2 (09:11→20:41)
[2021-07-27] MEDS: Nicotine 21 MG/24 Hr Patch TRDERM SCH (09:12)
[2021-07-27] MEDS ORDERED: Acetaminophen/Butalbital/Caffeine 325-50-40 MG Tab PO PRN (10:57)
[2021-07-27] MEDS: Sodium Chloride 0.9% 10 ML Syringe FLUSH PRN ×2 (20:41→21:25)
[2021-07-27] MEDS: cefTRIAXone 1 GM in Sodium Chloride 0.9% 50 ML IV SCH (23:18)
[2021-07-28] MEDS: Levothyroxine 100 MCG Tab PO SCH (05:51)
[2021-07-28] MEDS: Saccharomyces Boulardii (Probiotic) 250 MG Cap PO SCH (08:26)
[2021-07-28] MEDS: Baclofen 10 MG Tab PO SCH (08:26)
[2021-07-28] MEDS: Gabapentin 300 MG Cap PO SCH (08:27)
[2021-07-28] MEDS: Pantoprazole 40 MG Vial IVPUSH SCH (08:27)
[2021-07-28] MEDS: Nicotine 21 MG/24 Hr Patch TRDERM SCH (08:27)
[2021-07-28] MEDS: Enoxaparin 40 MG/0.4 ML Syringe SUBCUT SCH (08:28)
[2021-07-28 08:36] VITALS: BP 123/75; PULSE 70
[2021-07-28 09:52] LABS: CHLORIDE,CL 104 mmol/L (98-107); SODIUM,NA 139 mmol/L (136-145)
[2021-07-28] MEDS ORDERED: FLU VAC QS 21-22(6MS UP)CEL/PF 60 MCG/0.5 ML SYRINGE IM ONE (10:15)
== END 2021-07-28 12:29 | disposition home or self-care (01) | DRG 872 ==
LOC: DL.ED 21:09 → DL.MS 07-25 01:25
PROVIDERS: ADMIT Internal Medicine; ATTEND Internal Medicine
DX: A41.9 Sepsis, unspecified organism (principal); L03.115 Cellulitis of right lower limb; K58.9 Irritable bowel syndrome, unspecified; R73.9 Hyperglycemia, unspecified; F17.210 Nicotine dependence, cigarettes, uncomplicated; G62.9 Polyneuropathy, unspecified; E03.9 Hypothyroidism, unspecified; K21.9 Gastro-esophageal reflux disease without esophagitis; E66.9 Obesity, unspecified; M19.90 Unspecified osteoarthritis, unspecified site; Z79.890 Hormone replacement therapy; Z79.899 Other long term (current) drug therapy; M79.7 Fibromyalgia; R51.9 Headache, unspecified; N28.9 Disorder of kidney and ureter, unspecified; G89.29 Other chronic pain; F41.9 Anxiety disorder, unspecified; Z20.822 Contact with and (suspected) exposure to COVID-19; M54.9 Dorsalgia, unspecified; Z88.0 Allergy status to penicillin; Z90.49 Acquired absence of other specified parts of digestive tract; Z98.51 Tubal ligation status; Z98.891 History of uterine scar from previous surgery; Z68.32 Body mass index [BMI] 32.0-32.9, adult; Z71.6 Tobacco abuse counseling
CPT/HCPCS: 0240U; 36415; 73701; 80048; 80053; 80202; 80305-QW; 80307; 81001; 83605; 83735; 85025; 85379; 85610; 86140; 87040; 87086; 87641; 90674; 96365; 96366; 96375; 99222; 99232; 99238; 99284; 99284-25; A9270-GY; C9113; G0008; J0696; J1650; J2405; J3370; J3490; J7030; J7050; Q9967

== ENCOUNTER 2024-01-11 20:17 | Emergency (ER) | payer MEDICAID ==
[2024-01-11] MEDS ORDERED: Sodium Chloride 0.9% 10 ML Syringe FLUSH PRN (20:50)
[2024-01-11 21:08] LABS: BASOPHILS PERCENT AUTO 0.1 % (0.0-1.0); EOSINOPHILS PERCENT AUTO 1.6 % (1.0-3.0); HEMATOCRIT 40.2 % (37.0-47.0); HEMOGLOBIN 13.5 g/dL (12.0-16.0); LYMPHOCYTES PERCENT AUTO 36.5 % (20.5-50.1); MEAN CORPUSCULAR HEMOGLOBIN 29.8 pg (27.0-34.0); MEAN CORPUSCULAR HGB CONC 33.6 g/dL (33.0-35.0); MEAN CORPUSCULAR VOLUME 88.7 fL (80-100); MONOCYTES PERCENT AUTO 8.7 % (2-8); NEUTROPHILS PERCENT AUTO 53.1 % (42.2-75.2); PLATELET COUNT,PLT 300 10^3/uL (150-450); RED BLOOD CELL COUNT 4.53 10^6/uL (4.2-5.4); WHITE BLOOD CELL COUNT,WBC 8.1 10^3/uL (5.0-10.0)
[2024-01-11 21:39] LABS: ALBUMIN 3.3 g/dL (3.4-5.0); ANION GAP 14.8 mEq/L (7-13); BILIRUBIN TOTAL 0.2 mg/dL (0.2-1.0); CALCIUM 9.2 mg/dL (8.5-10.1); EST CRCL DRUG DOSING (CG) 52.49 mL/min; MAGNESIUM 2.1 mg/dL (1.8-2.4); POTASSIUM,K 3.8 mmol/L (3.5-5.1); PROTEIN TOTAL,TP 7.3 g/dL (6.4-8.2)
[2024-01-11 21:45] LABS: A/G RATIO 0.83
[2024-01-12] MEDS: Magnesium Hydroxide 400 MG/5 ML Susp 30 ML Cup ONE (01:19)
[2024-01-12 01:28] VITALS: BP 114/80; PULSE 67
== END 2024-01-12 01:19 | disposition home or self-care (01) ==
LOC: DL.ED 20:17
DX: M94.0 Chondrocostal junction syndrome [Tietze] (principal); K21.9 Gastro-esophageal reflux disease without esophagitis; R07.9 Chest pain, unspecified; E03.9 Hypothyroidism, unspecified; E66.9 Obesity, unspecified; Z79.899 Other long term (current) drug therapy; Z88.0 Allergy status to penicillin
CPT/HCPCS: 36415; 71045; 74018; 80053; 83735; 83880; 84484; 85025; 93005; 99285; A9270

== ENCOUNTER 2025-01-05 20:58 | Emergency (ER) | payer MEDICAID ==
[2025-01-05 21:55] VITALS: BP 116/79; PULSE 84
== END 2025-01-05 21:51 | disposition home or self-care (01) ==
LOC: DL.ED 20:58
DX: J06.9 Acute upper respiratory infection, unspecified (principal); B97.89 Other viral agents as the cause of diseases classified elsewhere; E03.9 Hypothyroidism, unspecified; E66.9 Obesity, unspecified; K21.9 Gastro-esophageal reflux disease without esophagitis; M19.90 Unspecified osteoarthritis, unspecified site; F17.210 Nicotine dependence, cigarettes, uncomplicated; Z79.899 Other long term (current) drug therapy; Z79.890 Hormone replacement therapy; Z88.0 Allergy status to penicillin; Z90.49 Acquired absence of other specified parts of digestive tract; Z68.33 Body mass index [BMI] 33.0-33.9, adult
CPT/HCPCS: 87428; 99283; A9270